=== PATIENT | male | born 1970 | race American Indian/Alaskan Native ===

== ENCOUNTER 2016-10-03 13:08 | Inpatient (IN) | payer OTHER ==
[2016-10-03] MEDS ORDERED: D5NS 0.2% 1,000 ML IV ONE (13:57)
[2016-10-03] MEDS ORDERED: ZOFRAN IV ONE (14:45)
[2016-10-03] MEDS ORDERED: TORADOL IV ONE (14:45)
[2016-10-03] MEDS ORDERED: DILAUDID IV ONE (14:45)
[2016-10-03] MEDS ORDERED: BENADRYL IV ONE (14:45)
[2016-10-03 14:57] LABS: Hematocrit 31.4 % (35.5-45.6); Hemoglobin 10.6 gm/dl (11.8-15.2); Mean Corpuscular HGB Conc 34 % (32-34); Mean Corpuscular Hemoglobin 28 pg (28-32); Mean Corpuscular Volume 82 fl (84-94); Red Blood Count 3.85 M/mm3 (3.65-5.03); Red Cell Distribution Width 16.1 % (13.2-15.2); Reticulocyte % 3.45 % (0.78-2.58); White Blood Count 11.5 K/mm3 (4.5-11.0)
[2016-10-03 15:14] LABS: Platelet Count 279 K/mm3 (140-440)
[2016-10-03 15:49] LABS: Basophils % (Manual) 0 % (0.0-1.8); Blastocytes % (Manual) 0 %
[2016-10-03 15:51] LABS: Anisocytosis 1+; Sickle Cells Few; Target Cells 1+
--- NOTE | 2016-10-03 15:51 | Emergency Department Report ---
ED General Adult HPI - General Chief complaint: Sickle Cell Crisis Stated complaint: SICKLE CELL CRISIS Time Seen by Provider: 10/03/16 14:34 Source: EMS Mode of arrival: Stretcher Limitations: No Limitations - History of Present Illness Initial comments: PLEASE DELETE CHART. ALTERNATIVE CHART CREATED DUE TO redealize ISSUE Severity scale (0 -10): 10 - Related Data Home Medications Medication Instructions Recorded Confirmed Last Taken Acetaminophen/Codeine [Tylenol #3] 1 tab PO Q6H PRN 05/01/13 01/17/15 Unknown Folic Acid [Folvite] 1 mg PO QDAY 05/01/13 01/17/15 Unknown Metoprolol [Lopressor] 12.5 mg PO BID 01/17/15 01/17/15 Unknown Rivaroxaban [Xarelto] 1 each PO 01/17/15 01/17/15 Unknown Previous Rx's Medication Instructions Recorded Last Taken Type Clindamycin [Clindamycin CAP] 300 mg PO Q8H #21 cap 01/18/15 Unknown Rx Allergies Allergy/AdvReac Type Severity Reaction Status Date / Time Penicillins Allergy Rash Verified 01/16/15 13:28 seafood Allergy Angioedema Uncoded 01/16/15 13:28 ED Review of Systems ROS: Stated complaint: SICKLE CELL CRISIS Other details as noted in HPI ED Past Medical Hx - Past Medical History Hx Hypertension: Yes Hx Congestive Heart Failure: No Hx Diabetes: No Hx Sickle Cell Disease: Yes (clot to leg and placement ivc filter) Hx Asthma: Yes Additional medical history: sickle cell. blood clot leg. PE - Surgical History Additional Surgical History: kelly filter - Social History Smoking Status: Never Smoker - Medications Home Medications: Home Medications Medication Instructions Recorded Confirmed Last Taken Type Acetaminophen/Codeine [Tylenol #3] 1 tab PO Q6H PRN 05/01/13 01/17/15 Unknown History Folic Acid [Folvite] 1 mg PO QDAY 05/01/13 01/17/15 Unknown History Metoprolol [Lopressor] 12.5 mg PO BID 01/17/15 01/17/15 Unknown History Rivaroxaban [Xarelto] 1 each PO 01/17/15 01/17/15 Unknown History Clindamycin [Clindamycin CAP] 300 mg PO Q8H #21 cap 01/18/15 Unknown Rx ED Physical Exam - General Limitations: No Limitations ED Course Vital Signs 10/03/16 10/03/16 10/03/16 14:47 15:13 17:26 Temperature Pulse Rate 68 83 78 Respiratory 18 16 20 Rate Blood Pressure 101/51 128/75 110/70 [Left] O2 Sat by Pulse 99 99 99 Oximetry 10/03/16 19:00 Temperature 98.2 F Pulse Rate Respiratory Rate Blood Pressure [Left] O2 Sat by Pulse Oximetry ED Medical Decision Making - Lab Data Result diagrams: 10/03/16 14:43 Critical care attestation.: If time is entered above; I have spent that time in minutes in the direct care of this critically ill patient, excluding procedure time. ED Disposition Clinical Impression: Pain of both hip joints, H/O deep venous thrombosis, Acute sickle cell crisis, Sickle cell disease, type SC Disposition: OP ADMITTED IP TO THIS HOSP Is pt being admited?: Yes Condition: Stable Time of Disposition: 15:50 (Dr Hernandez/hosp)
[2016-10-03 15:52] LABS: Giant Platelets Few; Poikilocytosis Few; Polychromasia Few
[2016-10-03 15:53] LABS: Diff Status Complete; Large Platelets Few; Platelet Estimate Consistent w Auto
--- NOTE | 2016-10-03 15:59 | Emergency Department Report ---
ED General Adult HPI - General Chief complaint: Sickle Cell Crisis Stated complaint: SICKLE CELL CRISIS Time Seen by Provider: 10/03/16 14:34 Source: EMS Mode of arrival: Stretcher Limitations: No Limitations - History of Present Illness Initial comments: 46-year-old male with a past medical history hypertension, DVT/PE, and a [place] filter presents to the hospital complains of pain secondary to sickle cell crisis. Symptoms 1 day since about noon. Patient of pain all over but worse in bilateral hips, bilateral legs, and arms. Pain is rated as severe, worse and movement without aggravating or alleviating factors. No complaints of fever, chest pain, shortness of breath, nausea, or vomiting. Patient taken Tylenol with codeine without improvement. Patient infrequently has crises that require him to go to the hospital and does not have a port. He denies a history of avascular necrosis. Floral Specialist: Dr. Pitts affiliated with [place] Severity scale (0 -10): 10 - Related Data Home Medications Medication Instructions Recorded Confirmed Last Taken Acetaminophen/Codeine [Tylenol #3] 1 tab PO Q6H PRN 05/01/13 01/17/15 Unknown Folic Acid [Folvite] 1 mg PO QDAY 05/01/13 01/17/15 Unknown Metoprolol [Lopressor] 12.5 mg PO BID 01/17/15 01/17/15 Unknown Rivaroxaban [Xarelto] 1 each PO 01/17/15 01/17/15 Unknown Previous Rx's Medication Instructions Recorded Last Taken Type Clindamycin [Clindamycin CAP] 300 mg PO Q8H #21 cap 01/18/15 Unknown Rx Allergies Allergy/AdvReac Type Severity Reaction Status Date / Time Penicillins Allergy Rash Verified 01/16/15 13:28 seafood Allergy Angioedema Uncoded 01/16/15 13:28 ED Review of Systems ROS: Stated complaint: SICKLE CELL CRISIS Other details as noted in HPI Comment: All other systems reviewed and negative Other: Constitutional: No fevers chills Eyes: No eye pain visual changes ENT: No ear pain or throat pain Neck: Denies pain Respiratory: Denies cough wheezing shortness of breath Cardiovascular: Denies chest pain, palpitations, syncope GI: Denies abdominal pain, nausea, vomiting, diarrhea : Denies dysuria, urinary frequency, or urgency Musculoskeletal: As per HPI Skin: Denies rash, lesions, erythema Neurologic: Denies headache, numbness, weakness Psychiatric: Denies suicidal ideation, hallucinations y ED Past Medical Hx - Past Medical History Hx Hypertension: Yes Hx Congestive Heart Failure: No Hx Diabetes: No Hx Sickle Cell Disease: Yes (clot to leg and placement ivc filter) Hx Asthma: Yes Additional medical history: sickle cell. blood clot leg. PE - Surgical History Additional Surgical History: kelly filter - Social History Smoking Status: Never Smoker - Medications Home Medications: Home Medications Medication Instructions Recorded Confirmed Last Taken Type Acetaminophen/Codeine [Tylenol #3] 1 tab PO Q6H PRN 05/01/13 01/17/15 Unknown History Folic Acid [Folvite] 1 mg PO QDAY 05/01/13 01/17/15 Unknown History Metoprolol [Lopressor] 12.5 mg PO BID 01/17/15 01/17/15 Unknown History Rivaroxaban [Xarelto] 1 each PO 01/17/15 01/17/15 Unknown History Clindamycin [Clindamycin CAP] 300 mg PO Q8H #21 cap 01/18/15 Unknown Rx ED Physical Exam - General Limitations: No Limitations - Other Other exam information: General: No limitations, positive distress secondary to pain Head exam: Atraumatic, normocephalic Eyes exam: Normal appearance, pupils equal reactive to light, extraocular movements intact, nonicteric sclera ENT: Moist mucous membrane, normal oropharynx Neck exam: Normal inspection, full range of motion, no meningismus nontender Respiratory exam: Clear to auscultation bilateral, no wheezes, rales, crackles Cardiovascular: Normal rate and rhythm, normal heart sounds Abdomen: Soft, nondistended, and nontender, with normal bowel sounds, no rebound, or guarding Extremity: Full range of motion normal inspection no deformity Back: Normal Inspection, full range of motion, lateral hip pain with movement Neurologic: Alert, oriented x3, cranial nerves intact, no motor or sensory deficit Psychiatric: normal affect, normal mood Skin: Warm, dry, intact ED Course Vital Signs 10/03/16 10/03/16 14:47 15:13 Pulse Rate 68 83 Respiratory 18 16 Rate Blood Pressure 101/51 128/75 [Left] O2 Sat by Pulse 99 99 Oximetry - Reevaluation(s) Reevaluation #1: 10/03/16 15:59 Patient treated with Dilaudid and normal saline, Toradol, and Benadryl with improvement in pain ED Medical Decision Making - Lab Data Result diagrams: 10/03/16 14:43 Lab Results 10/03/16 Range/Units 14:43 WBC 11.5 H (4.5-11.0) K/mm3 RBC 3.85 (3.65-5.03) M/mm3 Hgb 10.6 L (11.8-15.2) gm/dl Hct 31.4 L (35.5-45.6) % MCV 82 L (84-94) fl MCH 28 (28-32) pg MCHC 34 (32-34) % RDW 16.1 H (13.2-15.2) % Plt Count 279 (140-440) K/mm3 Add Manual Diff Complete Total Counted 100 Seg Neuts % (Manual) 85.0 H (40.0-70.0) % Band Neutrophils % 1.0 % Lymphocytes % (Manual) 5.0 L (13.4-35.0) % Reactive Lymphs % (Man) 0 % Monocytes % (Manual) 7.0 (0.0-7.3) % Eosinophils % (Manual) 1.0 (0.0-4.3) % Basophils % (Manual) 0 (0.0-1.8) % Metamyelocytes % 1.0 % Myelocytes % 0 % Promyelocytes % 0 % Blast Cells % 0 % Nucleated RBC % 1.0 H (0.0-0.9) % Seg Neutrophils # Man 9.8 H (1.8-7.7) K/mm3 Band Neutrophils # 0.1 K/mm3 Lymphocytes # (Manual) 0.6 L (1.2-5.4) K/mm3 Abs React Lymphs (Man) 0.0 K/mm3 Monocytes # (Manual) 0.8 (0.0-0.8) K/mm3 Eosinophils # (Manual) 0.1 (0.0-0.4) K/mm3 Basophils # (Manual) 0.0 (0.0-0.1) K/mm3 Metamyelocytes # 0.1 K/mm3 Myelocytes # 0.0 K/mm3 Promyelocytes # 0.0 K/mm3 Blast Cells # 0.0 K/mm3 WBC Morphology Not Reportable Hypersegmented Neuts Not Reportable Hyposegmented Neuts Not Reportable Hypogranular Neuts Not Reportable Smudge Cells Not Reportable Toxic Granulation Not Reportable Toxic Vacuolation Not Reportable Dohle Bodies Not Reportable Pelger-Huet Anomaly Not Reportable Johnny Rods Not Reportable Platelet Estimate Consistent w auto Clumped Platelets Not Reportable Plt Clumps, EDTA Not Reportable Large Platelets Few Giant Platelets Few Platelet Satelliting Not Reportable Plt Morphology Comment Not Reportable RBC Morphology Not Reportable Dimorphic RBCs Not Reportable Polychromasia Few Hypochromasia Not Reportable Poikilocytosis Few Anisocytosis 1+ Microcytosis Not Reportable Macrocytosis Not Reportable Spherocytes Not Reportable Pappenheimer Bodies Not Reportable Sickle Cells Few Target Cells 1+ Tear Drop Cells Not Reportable Ovalocytes Not Reportable Helmet Cells Not Reportable [place] Bodies Not Reportable Hitchcock Rings Not Reportable [place] Cells Not Reportable Bite Cells Not Reportable Crenated Cell Not Reportable Elliptocytes Not Reportable Acanthocytes (Spur) Not Reportable Rouleaux Not Reportable Hemoglobin C Crystals Not Reportable Schistocytes Not Reportable Malaria parasites Not Reportable Percent Retic 3.45 H (0.78-2.58) % Kuldip Bodies Not Reportable Hem Pathologist Commnt No - Medical Decision Making Patient significant pain upon presentation and really requires hospitalization or ER visits for sickle cell related pain. Given the severity of his symptoms patient will be admitted to the hospital overnight for further treatment. Bilateral hip x-rays obtained to rule out radiographic findings of avascular necrosis and pending official radiology read. Patient does not require transfusion and no signs of infection at this time. - Differential Diagnosis excessive necrosis, sickle cell crisis, anemia, infection Critical Care Time: No Critical care attestation.: If time is entered above; I have spent that time in minutes in the direct care of this critically ill patient, excluding procedure time. ED Disposition Clinical Impression: Sickle cell disease, type SC, Pain of both hip joints, Acute sickle cell crisis , H/O deep venous thrombosis Disposition: OP ADMITTED IP TO THIS HOSP Is pt being admited?: Yes Condition: Stable Time of Disposition: 15:55 (Dr Hernandez/hosp)
[2016-10-03] MEDS ORDERED: TYLENOL #3 PO PRN (16:57)
[2016-10-03] MEDS ORDERED: FOLVITE PO SCH (17:00)
[2016-10-03] MEDS ORDERED: CLEOCIN PO SCH (17:00)
[2016-10-03] MEDS ORDERED: DILAUDID IV PRN (17:01)
[2016-10-03] MEDS ORDERED: ZOFRAN IV PRN (17:03)
--- NOTE | 2016-10-03 17:11 | History and Physical Report ---
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 Medications and Allergies Allergies Allergy/AdvReac Type Severity Reaction Status Date / Time Penicillins Allergy Rash Verified 01/16/15 13:28 seafood Allergy Angioedema Uncoded 01/16/15 13:28 Home Medications Medication Instructions Recorded Confirmed Last Taken Type Acetaminophen/Codeine [Tylenol #3] 1 tab PO Q6H PRN 05/01/13 01/17/15 Unknown History Folic Acid [Folvite] 1 mg PO QDAY 05/01/13 01/17/15 Unknown History Metoprolol [Lopressor] 12.5 mg PO BID 01/17/15 01/17/15 Unknown History Rivaroxaban [Xarelto] 1 each PO 01/17/15 01/17/15 Unknown History Clindamycin [Clindamycin CAP] 300 mg PO Q8H #21 cap 01/18/15 Unknown Rx Active Meds: Active Medications Acetaminophen/Codeine Phosphate (Tylenol #3) 1 tab PO Q6H PRN PRN Reason: Pain Clindamycin HCl (Cleocin) 300 mg PO Q8H SAHIL Folic Acid (Folvite) 1 mg PO QDAY SAHIL Hydromorphone HCl (Dilaudid) 2 mg IV Q3H PRN PRN Reason: Pain , Severe (7-10) Dextrose/Sodium Chloride (D5ns 0.2%) 1,000 mls @ 250 mls/hr IV DIRECT ONE Stop: 10/03/16 17:56 Last Admin: 10/03/16 15:13 Dose: 250 mls/hr Metoprolol Tartrate (Lopressor) 12.5 mg PO BID SAHIL Ondansetron HCl (Zofran) 4 mg IV Q3H PRN PRN Reason: Nausea And Vomiting Exam - Constitutional Vitals: Temp Pulse Resp BP Pulse Ox 83 24 128/75 100 10/03/16 15:13 10/03/16 15:13 10/03/16 15:13 10/03/16 15:13 Results - Labs CBC & Chem 7: 10/03/16 14:43
[2016-10-03 17:27] VITALS: BP 110/70
[2016-10-03] MEDS ORDERED: NACL 0.9% 1000 ML 1,000 ML IV SCH (18:00)
[2016-10-03] MEDS ORDERED: FOLVITE ONE (18:17)
[2016-10-03] MEDS ORDERED: TYLENOL #3 ONE (18:17)
--- NOTE | 2016-10-03 21:22 | Admit Criteria Form ---
Admission Criteria Documentation: SICKLE CELL DISEASE Clinical Indications for Admission to Inpatient Care (Place 'X' for any and all applicable criteria): Admission is indicated for ANY ONE of the following(1)(2)(3)(4)(5): [ X]I. Inpatient admission required rather than observation care because of ANY ONE of the following: [ ]a) Altered mental status [ ]b) High fever or infection requiring inpatient admission as indicated by ANY ONE of the following: [ ]A. Appropriate outpatient observation care antimicrobial treatment unavailable, not effective, or not appropriate for infection [ ]B. Documented bacteremia [ ]C. Temp >104.9F (40.5C) (oral) [ ]D. Temp >103.1F (oral) or <96.8F(rectal) that does not respond to all emergency treatment measures [ ]c) Supplemental O2 or respiratory therapy for over 24 h that are performable only in acute inpatient setting [ X]d) Continuous parenteral narcoticsother major pain intervention for >24 h performable only in acute inpatient setting. [ ]e) Exchange transfusion [ X]f) Other condition, treatment or monitoring requiring inpatient admission [ ]II. Acute chest syndrome indicated by ALL of the following (10): [ ]a) New alveolar infiltrate involving at least one lung segment [ ]b) Associated pulmonary symptoms or findings as indicated by ANY ONE of the following: [ ]i) Chest pain [ ]ii) Hypoxemia [ ]iii) Tachypnea/dyspnea [ ]iv) Wheezing [ ]v) Cough [ ]vi) Sputum production [ ]III. Significant hypoxemia or acidosis (more severe than baseline) [ ]IV. Emergent surgery needed (eg, acute cholecystitis) [ ]V. -related complication(11) [ ]. Splenic or hepatic sequestration(12) [ ]VII. Aplastic crisis [ ]VIII. Priapism or other vascular complication(13) [ ]IX. Traumatic hyphema [A](14) [ ]X. Underlying condition requiring hospitalization (eg, osteomyelitis) [ ]XI. Signs or symptoms of central nervous system injury indicated by ANY ONE of the following: [ ]a) Stroke(9) [ ]b) Seizure [ ]c) Other significant central nervous system symptom or event [ ]XII. Acute renal failure Extended stay beyond goal length of stay may be needed for: [ ]a) Inadequate pain control [ ]b) Acute chest syndrome [ ]c) Sequestration or aplastic crisis (12) [ ]d) Pneumonia and asthma exacerbation [ ]e) Neurologic or vascular complications (25) [ ]f) Infection (eg, osteomyelitis) that requires ongoing treatment) The original [facility] [employer] content created by [facility] has been revised. The portions of the content which have been revised are identified through the use of italic text or in bold, and [facility] has neither reviewed nor approved the modified material. All other unmodified content is copyright [facility] [place]. Please see references footnoted in the original [facility] [employer] edition 2016 Admission Criteria Met: Yes
[2016-10-03] MEDS ORDERED: LOPRESSOR PO SCH (22:00)
--- NOTE | 2016-10-04 08:09 | XRay Report ---
BILATERAL HIPS WITH PELVIS, 3 VIEWS: HISTORY: Bilateral hip pain, sickle cell. FINDINGS: No comparison. The bony structures are diffusely sclerotic. There is no evidence for fracture, dislocation or pelvic diastasis. Early degenerative changes are noted at L4-5 and L5-S1. The soft tissues are unremarkable. IMPRESSION: Sclerotic bony structures which could be related to sickle cell. No acute process is noted.
== END 2016-10-03 20:15 | disposition short-term general hospital (02) | DRG 812 ==
LOC: ED 13:08 → 3A 15:54
PROVIDERS: ADMIT Internal Medicine; ATTEND Internal Medicine
DX: D57.00 Hb-SS disease with crisis, unspecified (principal); J45.909 Unspecified asthma, uncomplicated; I10 Essential (primary) hypertension; Z88.0 Allergy status to penicillin; Z91.013 Allergy to seafood; Z86.718 Personal history of other venous thrombosis and embolism; Z79.01 Long term (current) use of anticoagulants; Z95.828 Presence of other vascular implants and grafts
CPT/HCPCS: 36415; 73521; 85007; 85025; 85045; 96374; 96375; J1170; J1200; J1885; J2405